=== PATIENT | female | born 1940 | race Hispanic/Latino ===

== ENCOUNTER 2024-06-23 05:52 | Day surgery (SDC) | payer MEDICARE ==
[2024-06-20 15:42] LABS: BASOPHILS # (AUTO) 0.08 K/uL (0.00-0.20); BASOPHILS % (AUTO) 0.8 % (0.0-5.0); EOSINOPHILS # (AUTO) 0.31 K/uL (0.00-0.70); EOSINOPHILS % (AUTO) 2.9 % (0.0-8.0); HEMATOCRIT 39.1 % (36-48); IMMATURE GRANULOCYTE ABSOLUTE 0.05 K/uL (0-1); LYMPHOCYTES # (AUTO) 2.6 K/uL (1.0-4.8); LYMPHOCYTES % (AUTO) 25.1 % (21.0-51.0); MEAN CORPUSCULAR HEMOGLOBIN 29.1 pg (27.0-33.0); MEAN CORPUSCULAR HGB CONC 31.7 g/dL (32.0-36.0); MEAN CORPUSCULAR VOLUME 91.8 fL (79-99); MONOCYTES # (AUTO) 0.4 K/uL (0.1-1.0); MONOCYTES % (AUTO) 3.5 % (3.0-13.0); NEUTROPHILS # (AUTO) 7.1 K/uL (1.8-7.7); NEUTROPHILS % (AUTO) 67.2 % (40.0-77.0); PLATELET COUNT (AUTO) 217 K/uL (130-400); RED BLOOD CELL COUNT(AUTO) 4.26 MIL/uL (4.00-5.50); RED CELL DISTRIBUTION WIDTH 13.6 % (11.0-15.5); WHITE BLOOD COUNT (AUTO) 10.5 K/uL (4.8-10.8)
[2024-06-20 15:52] VITALS: BP 175/96; PULSE 97; RESP 16; TEMP 97.2
[2024-06-20 15:52] LABS: INR 0.96 (0.85-1.15); PROTHROMBIN TIME 10.2 SEC (9.6-11.6)
[2024-06-20 15:53] LABS: CREATININE 0.9 mg/dL (0.5-1.0); PARTIAL THROMBOPLASTIN TIME 33.4 SEC (26.3-35.5); POTASSIUM 4.4 mmol/L (3.5-5.1)
--- NOTE | 2024-06-21 06:31 | EKG ---
[facility] Test Date: 2024-06-20 Test Time: 15:34:17 Pat Name: VENTURA MCCARTHY Department: [facility] Room: Gender: F [employer] Administrator: [id number] : 1940 Requested By: NING HURST Order Number: [id number] Reading MD: Curt Mccarthy Measurements Intervals [place] Rate: 90 P: 63 VA: 219 QRS: -37 QRSD: 78 T: 77 QT: 379 QTc: 465 Interpretive Statements Sinus rhythm Borderline prolonged VA interval LAE, consider biatrial enlargement Left axis deviation No previous ECG available for comparison Electronically Signed On 06-21-2024 11:19:26 CDT by Curt Mccarthy Please click the below link to view image of tracing.
--- NOTE | 2024-06-21 11:07 | NUR ---
REPORT DR HARDY REVIEWED EKG. OK TO PROCEED
[2024-06-23] VITALS (14 sets, daily range): BP systolic 113–154; BP diastolic 50–74; PULSE 73–85; RESP 15–18; TEMP 97.1–97.7
[~2024-06-23] VITALS: Ht 152.4 cm; Wt 55.4 kg
[~2024-06-23 05:52] MED LIST: ACET-2743 PO; AMLO-257 PO; CARB15DR OP; EZET10TA48 PO; ICOS1CAP PO; INSU100V3 SQ; INSU3INS3 SQ; LEVO25CA5 PO
[2024-06-23] MEDS: 0.9%NACL 1000ML 1,000 ML IV ONE (06:37)
[2024-06-23] MEDS: ceFAZolin SODIUM 2 GM VIAL ONE (06:38)
[2024-06-23] MEDS ORDERED: BUPIvacaine/PF 0.5% 30ML VIAL ONE (07:12)
[2024-06-23] MEDS ORDERED: EPINEPHrine PF 1MG (1:1,000) 1 MG/ML AMP ONE (07:12)
[2024-06-23] MEDS ORDERED: LIDOCAINE PF 100MG/5ML (2%) SYRINGE 5ML ONE (07:13)
[2024-06-23] MEDS ORDERED: FENTanyl CITRate PF 50 MCG/1 ML 2ML VIAL ONE (07:14)
[2024-06-23] MEDS ORDERED: rocuRONium bROMide 10MG/1ML 5ML VL ONE (07:14)
[2024-06-23] MEDS ORDERED: proPOFol 10 MG/ML 20ML VIAL IV ONE (07:14)
[2024-06-23] MEDS ORDERED: MIDAZOLAM HCL 1 MG/ML 2ML VIAL ONE (07:14)
[2024-06-23] MEDS ORDERED: ondanSETRON 4MG INJ ONE (07:16)
[2024-06-23] MEDS ORDERED: NEOSTIGMINE METHYLSULFATE 1MG/ML IV ONE (07:17)
[2024-06-23] MEDS ORDERED: phenylEPHRINE HCL 10 MG/ML 1ML VIAL IV ONE (07:17)
[2024-06-23] MEDS ORDERED: GLYCOPYRROLATE 0.2 MG/ML 5 ML VIAL ONE (07:17)
[2024-06-23] MEDS: ceFAZolin SODIUM 2 GM VIAL IVPB ONE (07:30)
[2024-06-23] MEDS ORDERED: ePHEDrine SULFate 50 MG/ML AMPULE ONE (07:50)
--- NOTE | 2024-06-23 08:12 | OP ---
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 Patient was brought back to operating room. Positioned in the supine position. Preoperative antibiotics were given. Bilateral SCDs were placed. Patient was intubated. Patient then was prepped and draped the usual fashion. Local anesthetic was instilled into the skin overlying the mass. The ellipse of skin incision was made. Dissection down to and around the entire mass was done electrocautery wide taking careful attention to get negative margins. The dissection was carried down to the muscle area. The mesh was removed in total. There was some satellite lesions that could be dissected from the inside of the wound while maintaining the skin by careful dissection of the satellite lesions of the the skin and subcutaneous tissue. These were also removed. The total size of the mass excised was approximately 10 cm in diameter. Then the cavity was copiously irrigated. All irrigation was removed. Appropriate hemostasis was observed. Then the skin incision itself was closed in layers with suture. Appropriate dressings were placed. Patient then was woken up, transferred to a stretcher, taken to recovery recovery. All sponges and instruments were ac counted for at the end the case. Patient tolerated the procedure well, there no complications. Specimen was sent off to pathologist.] NING HURST MD Jun 23, 2024 08:12
[2024-06-23] MEDS ORDERED: TRAM100C3 PO (08:14)
[2024-06-23] MEDS ORDERED: DOCU-116 PO (08:14)
== END 2024-06-23 10:10 | disposition home or self-care (01) ==
LOC: DAH 05:52
PROVIDERS: ATTEND Surgery
DX: R22.2 Localized swelling, mass and lump, trunk (principal); L02.213 Cutaneous abscess of chest wall; L92.8 Other granulomatous disorders of the skin and subcutaneous tissue; E78.5 Hyperlipidemia, unspecified; I10 Essential (primary) hypertension; M19.90 Unspecified osteoarthritis, unspecified site; E11.9 Type 2 diabetes mellitus without complications; Z87.898 Personal history of other specified conditions; Z79.899 Other long term (current) drug therapy; Z79.890 Hormone replacement therapy; Z90.710 Acquired absence of both cervix and uterus; Z79.01 Long term (current) use of anticoagulants
CPT/HCPCS: 80048; 85025; 85610; 85730; 36415; 93005; 11406; 82948 ×2; 88305; A6260; A4663; J3010; J7030; J3490 ×4; J2003; J0171; J2250; J2704; J2405; J2710; J0665; J2371; J0690 ×2; A4930; A4215; A4223; A4222; A4221; A4600